=== PATIENT | female | born 1945 | race Caucasian/White ===

== ENCOUNTER 2020-07-31 11:03 | Outpatient (CLI) | payer MEDICARE, SELFPAY ==
[2020-07-31 17:32] LABS: Alanine Aminotransferase 15 U/L (4-35); Alkaline Phosphatase 100 U/L (38-126); Anion Gap 5 mmol/L (8-16); Aspartate Amino Transferase 28 U/L (14-36); Bilirubin,Total 0.6 mg/dL (0.2-1.3); Blood Urea Nitrogen 10 mg/dL (7-17); Calcium 9.5 mg/dL (8.4-10.2); Carbon Dioxide 33 mmol/L (22-30); Chloride 102 mmol/L (98-107); Cholesterol 222 mg/dL (0-200); Estimated Glomerular Filt Rate > 60; Glucose 111 mg/dL (65-105); HDL Direct 70 mg/dL; Potassium 3.4 mmol/L (3.4-5.0); Sodium 140 mmol/L (137-145); Triglycerides 217 mg/dL (<150)
[2020-07-31 17:43] LABS: LDL Cholesterol Direct 141 mg/dL
[2020-07-31 17:48] LABS: Free T4 Free Thyroxine 1.22 ng/mL (0.78-2.19)
[2020-07-31 18:03] LABS: Thyroid Stimulating Hormone 0.225 uIU/mL (0.465-4.680)
[2020-07-31 18:40] LABS: Folic Acid > 20.0 ng/mL (2.76->20)
[2020-08-05 14:13] LABS: Triiodothyronine T3 Free 2.8 pg/mL (2.3-4.2)
== END 2020-07-31 11:04 | disposition home or self-care (01) ==
PROVIDERS: PCP Family Medicine; Visit Provider Physician Assistant
DX: E03.9 Hypothyroidism, unspecified (principal); E78.5 Hyperlipidemia, unspecified; G25.81 Restless legs syndrome
CPT/HCPCS: 36415; 80053; 80061; 82607; 82746; 84439; 84443; 84481

== ENCOUNTER 2021-01-27 14:49 | Outpatient (CLI) | payer MEDICARE, SELFPAY ==
--- NOTE | ~2021-01-27 | CT_ITS ---
EXAMINATION: CT soft tissue neck chest w DATE: 01/27/2021 15:42 INDICATION: Paralysis of vocal cords and larynx, unilateral. TECHNIQUE: Computed tomography (CT) of the neck and chest was performed with 75 mL Omnipaque-350 intr avenous contrast. Automated exposure control and iterative reconstruction technique were employed. Th e dose-length product was 858.25 mGy-cm. COMPARISON: PET/CT 08/30/18, CHEST CT 08/10/18 FINDINGS: CT NECK: There is anteroposterior elongation of the ocular globes. There are likely changes of ocular lens replacement surgeries. There are no pathologically enlarged lymph nodes. There is asymmetric po sitioning of the vocal cords. There is plaque in proximal right internal carotid artery with 0% steno sis relative to normal distal artery lumen diameter. There is moderate cervical spondylosis. CT CHEST: The lung volumes are small. There is widespread peripheral septal thickening in the lungs c onsistent with mild groundglass opacities. There is a staple line in left lower lobe. A calcified rig ht lung nodule and calcified right hilar and mediastinal lymph nodes are consistent with old granulom atous disease. No pleural effusion. Cardiomegaly is noted. There is a large sliding hiatal hernia. A left hilar node measures 13 x 14 mm. There are changes of left mastectomy. Calcifications in the sple en are consistent with old granulomatous disease. There is mild thoracic spondylosis. There is a rosi ngioma in T4 vertebral body. IMPRESSION: 1. Diffuse lung disease, worsened from 08/10/2018, consistent with chronic interstitial lung disease in a pattern of usual interstitial pneumonia (UIP) versus nonspecific interstitial pneumonia (NSIP). 2. Mildly enlarged left hilar lymph node, stable from 08/10/2018, likely benign. 3. 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 No etiology identified. 4. Large sliding hiatal hernia. Reviewed, dictated and finalized at location A. IMPRESSION: 1. Diffuse lung disease, worsened from 08/10/2018, consistent with chronic inte rstitial lung disease in a pattern of usual interstitial pneumonia (UIP) versus nonspecific interstitial pneumonia (NSIP). 2. Mildly enlarged left hilar lymph node, stable from 08/10/2018, likely benign . 3. Asymmetric positioning of the vocal cords correlating with the clinical hist ory of vocal cord paralysis. No etiology identified. 4. Large sliding hiatal hernia.
[2021-01-27 15:22] LABS: Estimated Glomerular Filt Rate > 60
== END 2021-01-27 14:50 | disposition home or self-care (01) ==
PROVIDERS: PCP Physician Assistant; Visit Provider Otolaryngology
DX: Z85.9 Personal history of malignant neoplasm, unspecified (principal); R91.8 Other nonspecific abnormal finding of lung field; K44.9 Diaphragmatic hernia without obstruction or gangrene
CPT/HCPCS: 70491; 71260; Q9967

== ENCOUNTER → 2021-07-07 12:16 | Outpatient (CLI) | payer MEDICARE, SELFPAY ==
--- NOTE | ~2021-07-07 | XR_ITS ---
EXAMINATION: XR wrist RT min 3V EXAM DATE: 07/07/2021 12:52 INDICATION: M25.539 - Pain in unspecified wrist. TECHNIQUE: Right wrist frontal, frontal with ulnar deviation, oblique and lateral projections obtain ed and reviewed. There is no prior study for comparison. FINDINGS: There is ulnar minus variance. Old ulnar styloid avulsion fracture or fractures with nonuni on. 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 Chondrocalcinosis can be an age rela geraldine finding, but with other possible etiologies including CPPD, parathyroid disorders, hemochromatosi s, gout. 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 Mildly widened scapholunate timmy int space, could indicate partial dissociation. IMPRESSION: Chronic right wrist findings as above. Reviewed, dictated and finalized at location A. TRICAL LINEMAN
--- NOTE | ~2021-07-07 | DEXA_ITS ---
Bone Density Report Name: Hanh Baires Age: 76 Sex: Female Ethnicity: White Date of : 1945 Indication: postmenopausal; screening for osteoporosis; height loss; prior fracture; cancer; Referring Provider: JESUS HARRY Study: Bone densitometry was performed. Exam Date: July 07, 2021 Accession number: [id number] Bone Density: Region BMD T-score Z-score Classification AP Spine (L1-L4) 1.201 1.4 3.9 Normal Femoral Neck (Left) 0.668 -1.6 0.6 Osteopenia Total Hip (Left) 0.947 0.0 2.0 Normal Femoral Neck (Right) 0.675 -1.6 0.6 Osteopenia Total Hip (Right) 0.877 -0.5 1.4 Normal Total Hip Mean 0.912 -0.3 1.7 Normal World Health Organization criteria for BMD impression classify patients as: Normal (T-score at or above -1.0), Osteopenia (T-score between -1.0 and -2.5), or Osteoporosis (T-score at or below -2.5). 10-year Fracture Risk(1): Major Osteoporotic Fracture 17% Hip Fracture 3.5% Reported Risk Factors: [place] (), Neck BMD=0.668, BMI=37.6, previous fracture (1) FRAX(R) Version 3.08. Fracture probability calculated for an untreated patient. Fracture probability may be lower if the patient has received treatment. Clinical Information Provided by Patient: Has had a low trauma fracture Has used the following medications: Calcium Has the following medical conditions: Cancer Patient maximum height was 64 Menopause Age: 47 No regular weight bearing exercise Does not regularly consume dairy products Drinks caffeinated beverages Onset of menses at age 11 Number of children 3 Impression: The patient has low bone mass, based on the Left Femoral Neck T-score. The patient has an estimated ten-year risk of hip fracture of 3.5% and an estimated ten-year risk of major fracture of 17%, based on the WHO FRAX algorithm. The patient has risk factors, including: previous fracture. Discussion: BONE DENSITY IS LOW AT ONE OR MORE SKELETAL SITES. THE PATIENT'S BMD AND CLINICAL RISK FACTORS CONTRIBUTE TO THIS PATIENT'S INCREASED RISK OF FRACTURE. This patient's lowest T-score is low at one or more skeletal sites. It meets the World Health Organization's (WHO) criteria for ?low bone mass? (T-score between -1.0 and -2.5). The patient's 10-year risk of hip fracture as calculated by FRAX exceeds the threshold where pharmacological therapy is recommended by the National Osteoporosis Foundation (NOF). However, all treatment decisions require clinical judgment and consideration of individual patient factors, including patient preferences, comorbidities, previous drug use, risk factors not captured in the FRAX model (e.g., frailty, falls, vitamin D deficiency, increased bone turnover, interval significant decline in bone density) and possible under or overestimation of fracture risk by FRAX. The patient s
== END ==
PROVIDERS: PCP Family Medicine; Visit Provider Family Medicine
DX: Z78.0 Asymptomatic menopausal state (principal); M25.539 Pain in unspecified wrist; M85.852 Other specified disorders of bone density and structure, left thigh; M85.851 Other specified disorders of bone density and structure, right thigh
CPT/HCPCS: 73110; 77080

== ENCOUNTER 2021-11-10 10:21 | Outpatient (CLI) | payer MEDICARE, SELFPAY ==
--- NOTE | ~2021-11-10 | XR_ITS ---
EXAMINATION: XR chest 2V DATE: 11/10/2021 10:47 INDICATION: Dyspnea, unspecified. TECHNIQUE: Frontal and lateral views of the chest were obtained. COMPARISON: Chest CT 01/27/2021, chest 2 views 11/17/2017 FINDINGS: There is chronic widespread septal thickening in the lungs. No pleural effusion or pneumoth orax. The heart size is normal. There is a large hiatal hernia. Calcified right hilar lymph nodes are consistent with old granulomatous disease. IMPRESSION: 1. Chronic interstitial lung disease. 2. Large hiatal hernia. Reviewed, dictated and finalized at location A.
[2021-11-10 18:54] LABS: Hemoglobin 14.5 g/dL (12.0-15.0); Mean Corpuscular HGB Conc 32.2 g/dl (32-36); Mean Corpuscular Hemoglobin 31.9 pg (26-34); Mean Corpuscular Volume 99.1 fl (80-100); Mean Platelet Volume 10.5 fl (7.4-10.4); Platelet Count Result 482 k/mm3 (150-375); Red Blood Count 4.54 M/mm3 (4.2-5.4); Red Cell Distribution Width 12.9 % (11.5-14.5); White Blood Count 17.2 K/mm3 (4.5-10.0)
[2021-11-10 19:57] LABS: Hemoglobin A1C 5.6 % (<5.7)
[2021-11-10 20:00] LABS: Creatinine Urine 161.8 mg/dL
[2021-11-10 20:05] LABS: MALB Creatinine Ratio 22.6 mg/g (0-30); Microalbumin Urine Random 36.5 mg/L (0-16.7)
[2021-11-10 20:09] LABS: Vitamin D 25 Hydroxy 41.1 ng/mL
[2021-11-10 20:15] LABS: Alanine Aminotransferase 23 U/L (4-35); Albumin Level 4.3 g/dL (3.5-5.1); Alkaline Phosphatase 105 U/L (38-126); Anion Gap 12 mmol/L (8-16); Aspartate Amino Transferase 23 U/L (14-36); Bilirubin,Total 0.8 mg/dL (0.2-1.3); Blood Urea Nitrogen 19 mg/dL (7-17); Calcium 9.3 mg/dL (8.4-10.2); Carbon Dioxide 28 mmol/L (22-30); Chloride 96 mmol/L (98-107); Cholesterol 158 mg/dL (0-200); Estimated Glomerular Filt Rate > 60; Glucose 109 mg/dL (65-110); HDL Direct 64 mg/dL; Potassium 3.4 mmol/L (3.4-5.0); Sodium 136 mmol/L (137-145); Triglycerides 203 mg/dL (<150)
[2021-11-10 20:22] LABS: Thyroid Stimulating Hormone Reflex 0.055 uIU/mL (0.465-4.68)
[2021-11-10 20:26] LABS: LDL Cholesterol Direct 65 mg/dL
[2021-11-10 20:49] LABS: Free T4 Free Thyroxine Reflex 1.44 ng/dL (0.78-2.19)
[2021-11-10 21:36] LABS: Total Triiodothyronine (T3) 0.97 NG/ML (0.97-1.69)
== END 2021-11-10 10:22 | disposition home or self-care (01) ==
PROVIDERS: PCP Family Medicine; Visit Provider Family Medicine
DX: E11.9 Type 2 diabetes mellitus without complications (principal); R53.83 Other fatigue; E78.2 Mixed hyperlipidemia; E55.9 Vitamin D deficiency, unspecified; E03.9 Hypothyroidism, unspecified; R06.00 Dyspnea, unspecified; K44.9 Diaphragmatic hernia without obstruction or gangrene; J84.9 Interstitial pulmonary disease, unspecified
CPT/HCPCS: 36415; 71046; 80053; 80061; 82043; 82306; 83036; 84439; 84443; 84480; 85027

== ENCOUNTER 2021-11-12 13:38 | Outpatient (CLI) | payer MEDICARE, SELFPAY ==
--- NOTE | ~2021-11-12 | CT_ITS ---
EXAMINATION: CT chest high resolution wo co DATE: 11/12/2021 14:31 INDICATION: Shortness of breath. Abnormal finding of lung field. History of breast cancer. TECHNIQUE: Computed tomography (CT) of the abdomen was performed without intravenous contrast. Automa geraldine exposure control and iterative reconstruction technique were employed. Exam dose: 217.80 mGy-cm total exam DLP. Each high-resolution chest COMPARISON: 11/10/2021 2 view chest 08/10/2018 CT chest abdomen FINDINGS: Borderline heart size. Coronary artery calcifications. There is aortic and great vessel calcification. No hilar or mediastinal or axillary mass lesion or ly mphadenopathy is noted.. Status post left mastectomy. Azygos lobe, normal variant. There are peripheral reticular opacities involving particularly the anterior lung mcwilliams, possibly po stradiation sequela versus chronic interstitial fibrosis, possibly usual interstitial pneumonia type. Status post partial left pneumonectomy. There is mild bilateral apical scarring. Calcified right upper lobe pulmonary granuloma and calcified right hilar and mediastinal nodes, consi stent with old granulomatous disease. No pulmonary consolidation or suspicious pulmonary mass lesion is identified. Very large hiatal hernia containing most of the stomach with small fluid levels. Occasional calcified hepatic and splenic granulomas consistent with old granulomatous disease. Normal morphology of the adrenal glands. Hemangioma of T4 vertebral body. There is degenerative change of the cervical, thoracic and lumbar sp ine. No suspicious osteolytic or osteoblastic lesions are noted. IMPRESSION: Status post left mastectomy Status post partial left pneumonectomy Increased reticular interstitial markings of the peripheral lung mcwilliams especially in the anterior solange ngs, possibly sequela of radiation and/or usual interstitial pneumonia chronic interstitial fibrosis Large hiatal hernia containing most of the stomach with small fluid levels Reviewed, dictated and finalized at Location A. Reviewed, dictated and finalized at location A. IMPRESSION: Status post left mastectomy Status post partial left pneumonectomy Increased reticular interstitial markings of the peripheral lung mcwilliams especia lly in the anterior lungs, possibly sequela of radiation and/or usual interstit ial pneumonia chronic interstitial fibrosis Large hiatal hernia containing most of the stomach with small fluid levels
== END 2021-11-12 13:39 | disposition home or self-care (01) ==
LOC: ANHIMG 13:38
PROVIDERS: PCP Family Medicine; Visit Provider Family Medicine
DX: R91.8 Other nonspecific abnormal finding of lung field (principal); K44.9 Diaphragmatic hernia without obstruction or gangrene
CPT/HCPCS: 71250

== ENCOUNTER 2022-03-23 13:30 | Outpatient (CLI) | payer MEDICARE, SELFPAY ==
--- NOTE | 2022-03-23 14:17 | PCRCNOTE ---
PT CAME IN FOR 6 MINUTE WALK AND PFT TESTING, PT'S BLOOD PRESSURE WAS 179/105. RECHECKED BLOOD PRESSURE SEVERAL MORE TIMES AND IT WAS STILL ELEVATED. SPOKE WITH ORDERING PHYSICIAN'S OFFICE, DR SHELTON AND THEY ADVISED PT TO CALL PT'S PRIMARY PHYSICIAN AND CANCELLED PT'S TESTING FOR TODAY. SHE WILL RESCHEDULE WHEN BLOOD PRESSURE ISSUES ARE RESOLVED.
== END 2022-03-23 13:31 | disposition home or self-care (01) ==
PROVIDERS: PCP Family Medicine; Visit Provider Internal Medicine Pulmonary Disease
DX: R06.00 Dyspnea, unspecified (principal)
CPT/HCPCS: 99199

== ENCOUNTER 2022-03-28 14:13 | Outpatient (CLI) | payer MEDICARE, SELFPAY ==
[2022-03-28 20:46] LABS: Creatine Kinase 43 U/L (30-135)
[2022-03-28 20:49] LABS: Rheumatoid Factor < 8.6 IU/ML (<12)
[2022-03-30 21:12] LABS: Anti Cyclic Citrullinated Pept <16 Units (<20)
[2022-03-31 21:09] LABS: ANA Cascade Screen Negative (Negative)
[2022-04-02 11:24] LABS: Aldolase 3.7 U/L (<=8.1)
[2022-04-06 22:21] LABS: ANCA Screen Negative (Negative)
== END 2022-03-28 14:14 | disposition home or self-care (01) ==
PROVIDERS: PCP Family Medicine; Visit Provider Internal Medicine Pulmonary Disease
DX: J84.9 Interstitial pulmonary disease, unspecified (principal); J98.4 Other disorders of lung
CPT/HCPCS: 36415; 82085; 82550; 86036; 86038; 86200; 86331; 86430; 86606; 86609

== ENCOUNTER 2022-07-13 14:17 | Outpatient (CLI) | payer MEDICARE, SELFPAY ==
[2022-07-13 19:47] LABS: Hemoglobin A1C 5.8 % (<5.7)
[2022-07-13 19:54] LABS: Hematocrit 44.9 % (37.0-47.0); Hemoglobin 14.7 g/dL (12.0-15.0); Mean Corpuscular HGB Conc 32.7 g/dl (32-36); Mean Corpuscular Hemoglobin 31.8 pg (26-34); Mean Corpuscular Volume 97.2 fl (80-100); Mean Platelet Volume 11.3 fl (7.4-10.4); Platelet Count Result 352 k/mm3 (150-375); Red Blood Count 4.62 M/mm3 (4.2-5.4); White Blood Count 11.5 K/mm3 (4.5-10.0)
[2022-07-13 20:00] LABS: Alanine Aminotransferase 21 U/L (6-35); Albumin Level 4.5 g/dL (3.5-5.1); Alkaline Phosphatase 136 U/L (38-126); Anion Gap 12 mmol/L (8-16); Aspartate Amino Transferase 51 U/L (14-36); Bilirubin,Total 0.5 mg/dL (0.2-1.3); Blood Urea Nitrogen 10 mg/dL (7-17); Calcium 9.4 mg/dL (8.4-10.2); Carbon Dioxide 28 mmol/L (22-30); Chloride 98 mmol/L (98-107); Cholesterol 184 mg/dL (0-200); Estimated Glomerular Filt Rate > 60; Glucose 101 mg/dL (65-110); HDL Direct 67 mg/dL; Potassium 3.7 mmol/L (3.4-5.0); Sodium 138 mmol/L (137-145); Triglycerides 168 mg/dL (<150)
[2022-07-13 20:11] LABS: LDL Cholesterol Direct 78 mg/dL
[2022-07-13 20:15] LABS: Vitamin D 25 Hydroxy 44.6 ng/mL
[2022-07-13 20:28] LABS: Thyroid Stimulating Hormone Reflex 0.023 uIU/mL (0.465-4.68)
[2022-07-13 20:51] LABS: Vitamin B12 > 1000.0 pg/mL (239-931)
[2022-07-13 21:28] LABS: Free T4 Free Thyroxine Reflex 1.28 ng/dL (0.78-2.19)
[2022-07-13 22:43] LABS: Total Triiodothyronine (T3) 1.46 NG/ML (0.97-1.69)
== END 2022-07-13 14:18 | disposition home or self-care (01) ==
PROVIDERS: PCP Family Medicine; Visit Provider Family Medicine
DX: E78.2 Mixed hyperlipidemia (principal); R73.03 Prediabetes; E03.9 Hypothyroidism, unspecified; E55.9 Vitamin D deficiency, unspecified; I10 Essential (primary) hypertension; R53.83 Other fatigue; E53.8 Deficiency of other specified B group vitamins
CPT/HCPCS: 36415; 80053; 80061; 82306; 82607; 83036; 84439; 84443; 84480; 85027

== ENCOUNTER 2022-12-28 13:57 | Outpatient (CLI) | payer MEDICARE, SELFPAY ==
[2022-12-28 20:10] LABS: Alanine Aminotransferase 19 U/L (6-35); Albumin Level 4.3 g/dL (3.5-5.1); Alkaline Phosphatase 99 U/L (38-126); Anion Gap 5 mmol/L (8-16); Aspartate Amino Transferase 62 U/L (14-36); Bilirubin,Total 0.6 mg/dL (0.2-1.3); Blood Urea Nitrogen 10 mg/dL (7-17); Calcium 9.4 mg/dL (8.4-10.2); Carbon Dioxide 35 mmol/L (22-30); Chloride 100 mmol/L (98-107); Estimated Glomerular Filt Rate > 60; Glucose 127 mg/dL (65-110); Potassium 3.5 mmol/L (3.4-5.0); Sodium 140 mmol/L (137-145)
[2022-12-28 20:26] LABS: Thyroid Stimulating Hormone Reflex < 0.015 uIU/mL (0.465-4.68)
== END 2022-12-28 13:58 | disposition home or self-care (01) ==
PROVIDERS: PCP Family Medicine; Visit Provider Family Medicine
DX: E03.9 Hypothyroidism, unspecified (principal); I10 Essential (primary) hypertension
CPT/HCPCS: 36415; 80053; 84439; 84443; 84480

== ENCOUNTER 2023-07-24 14:01 | Outpatient (CLI) | payer MEDICARE, SELFPAY ==
--- NOTE | ~2023-07-24 | XR_ITS ---
EXAMINATION: XR lumbar spine min 4V DATE: 07/24/2023 14:43 INDICATION: Right-sided low back pain TECHNIQUE: Anteroposterior, lateral, and bilateral oblique views of the lumbar spine, and cone-down l ateral view of the lumbosacral junction were obtained. COMPARISON: CT chest dated 08/10/2018 FINDINGS: Increase in now 20 degrees upper lumbar levoscoliosis. Chronic L4 burst fracture with 40% anterior to central vertebral body height loss and 5 mm retropulsion of the superior aspect of the posterior wal l. Remaining vertebral body heights are normal. Moderate disc height loss at L4-L5 and L5-S1, mild to moderate disc height loss at L1-L2 and L2-L3 and mild disc height loss at T12-L1. There is balloonin g of the L3-L4 disc space resulting from the L4 first fracture. There is bilateral severe facet osteo arthritis in the mid to lower lumbar spine. No pars interarticularis defects. IMPRESSION: 1. 20 degree upper lumbar levoscoliosis with moderate spondylosis and severe mid to lower lumbar face t osteoarthritis. 2. Chronic L4 burst fracture with 40% vertebral body height loss and 5 mm retropulsion. Reviewed, dictated and finalized at location A. RER OPERATOR IMPRESSION: 1. 20 degree upper lumbar levoscoliosis with moderate spondylosis and severe mi d to lower lumbar facet osteoarthritis. 2. Chronic L4 burst fracture with 40% vertebral body height loss and 5 mm retro pulsion.
[2023-07-24 19:26] LABS: Alanine Aminotransferase 17 U/L (6-35); Albumin Level 4.3 g/dL (3.5-5.1); Alkaline Phosphatase 105 U/L (38-126); Anion Gap 10 mmol/L (8-16); Aspartate Amino Transferase 62 U/L (14-36); Bilirubin,Total 0.8 mg/dL (0.2-1.3); Blood Urea Nitrogen 9 mg/dL (7-17); Calcium 9.2 mg/dL (8.4-10.2); Carbon Dioxide 31 mmol/L (22-30); Chloride 97 mmol/L (98-107); Estimated Glomerular Filt Rate > 60; Glucose 97 mg/dL (65-110); Potassium 2.9 mmol/L (3.4-5.0); Sodium 138 mmol/L (137-145)
[2023-07-24 21:03] LABS: Hemoglobin A1C 5.7 % (<5.7)
== END 2023-07-24 14:02 | disposition home or self-care (01) ==
PROVIDERS: PCP Family Medicine; Visit Provider Physician Assistant Medical
DX: E03.9 Hypothyroidism, unspecified (principal); R73.03 Prediabetes; I10 Essential (primary) hypertension
CPT/HCPCS: 36415; 72110; 80053; 83036; 84443

== ENCOUNTER 2023-07-28 15:09 | Outpatient (CLI) | payer MEDICARE, SELFPAY ==
--- NOTE | ~2023-07-28 | CT_ITS ---
EXAMINATION: CT lumbar spine wo con DATE: 07/28/2023 15:36 INDICATION: Lumbar burst fracture TECHNIQUE: Computed tomography (CT) of the lumbar spine was performed without intravenous contrast. A utomated exposure control and iterative reconstruction technique were employed. The dose-length produ ct was 1336.97 mGy-cm. COMPARISON: 08/10/2018 FINDINGS: 13 degree lumbar levoscoliosis. 2 mm anterolisthesis L4 on L5. 5 mm right lateral listhesis L4 on L5 and 5 mm left lateral listhesis of L2 on L3. No interval change in a chronic L4 burst fracture with 4 0% anterior to central vertebral body height loss and with 5 mm retropulsion along the posterior aspe ct of the superior endplate. Remaining lumbar vertebral body heights are normal. Moderate disc height loss at L5-S1 and moderate left-sided disc height loss at L4-L5. Mild disc height loss at L2-L3. Ath erosclerotic calcific a cyst along the visualized abdominal aorta. 10 mm macroscopic fat attenuation angiomyolipomas at the upper pole the right kidney. Paravertebral soft tissues are otherwise unremark able. Mild bilateral sacroiliac osteoarthritis. The following disc levels are specifically discussed: T10-T11: The disc does not extend beyond the endplate margin. There is mild right and moderate left f acet osteoarthritis. No central canal or neural foraminal stenosis. T11-T12: The disc does not extend beyond the endplate margin. There is mild right and moderate left f acet joint osteoarthritis. There is no neural foraminal stenosis. There is no central canal stenosis. T12-L1: Disc is bulging, eccentric to the left. There is mild right and moderate left facet joint ost eoarthritis. There is minimal left neural foraminal stenosis. There is mild central canal stenosis wi th mild narrowing of the left lateral recess. L1-L2: There is some calcification at the periphery of the bulging disc. There appears be a superimpo sed right foraminal zone disc extrusion. There is mild right and moderate left facet joint osteoarthr itis. There is mild left and moderate right neural foraminal stenosis. There is mild central canal st enosis. L2-L3: Disc is bulging also with some peripheral disc calcification and small right foraminal zone di sc extrusion. There is mild right and moderate to severe left facet joint osteoarthritis. There is mi ld to moderate left and moderate right neural foraminal stenosis. There is mild central canal stenosi s. L3-L4: Disc is bulging. But does not appear to extend beyond the retropulsed L4 superior endplate mar gin. There is severe bilateral facet joint osteoarthritis. There is moderate bilateral neural foramin al stenosis. There is mild to moderate central canal stenosis. L4-L5: Disc is bulging. There is severe bilateral facet joint osteoarthritis. There is mild to modera te right and moderate to severe left neural foraminal stenosis. There is mild central canal stenosis. L5-S1: Disc is bulging with small endplate osteophytes at the bilateral foraminal zones. There is sev ere left and moderate to severe right facet joint osteoarthritis. There is moderate bilateral neural foraminal stenosis. There is minimal central canal stenosis. IMPRESSION: 1. No interval change in a chronic L4 burst fracture with 40% vertebral body height loss and 5 mm ret ropulsion. 2. 13 degrees lumbar levoscoliosis with moderate spondylosis. Reviewed, dictated and finalized at location A. UNITY ENGAGEMENT COORDINATOR IMPRESSION: 1. No interval change in a chronic L4 burst fracture with 40% vertebral body he ight loss and 5 mm retropulsion. 2. 13 degrees lumbar levoscoliosis with moderate spondylosis.
== END 2023-07-28 15:10 | disposition home or self-care (01) ==
PROVIDERS: PCP Family Medicine; Visit Provider Physician Assistant Medical
DX: S32.001A Stable burst fracture of unspecified lumbar vertebra, initial encounter for closed fracture (principal); X58.XXXA Exposure to other specified factors, initial encounter; M47.896 Other spondylosis, lumbar region
CPT/HCPCS: 72131

== ENCOUNTER 2024-04-10 13:41 | Outpatient (CLI) | payer MEDICARE, SELFPAY ==
--- NOTE | ~2024-04-10 | CT_ITS ---
EXAMINATION: CT soft tissue neck chest w DATE: 04/10/2024 14:51 INDICATION: Paralysis of vocal cords and larynx, unspecified. TECHNIQUE: Computed tomography (CT) of the neck and chest was performed with 75 mL Omnipaque-350 intr avenous contrast. Automated exposure control and iterative reconstruction technique were employed. Th e dose-length product was 890.75 mGy-cm. COMPARISON: Chest CT 11/12/2021, 08/10/2018 FINDINGS: CT NECK: There are likely changes of ocular lens replacement surgeries. There is an anteroposterior e longation of the ocular globes. There are no pathologically enlarged lymph nodes. There is a 16 mm no dule in left thyroid lobe. There is paralysis of left vocal cord. The paranasal sinuses are clear. Th e mastoid air cells are normal. There is moderate cervical spondylosis. CT CHEST: There is widespread septal thickening in the lungs with a peripheral predominance. There is air trapping in the lower lobes. There are changes of wedge resection in left lower lobe. No pleural effusion. Cardiomegaly is noted. There are coronary artery calcifications. No pericardial effusion. There is a large sliding hiatal hernia. Calcifications in the spleen are consistent with old granulom atous disease. There is mild lymphadenopathy at the left hilum and aorticopulmonary window. For examp le, an aorticopulmonary node measures 15 x 10 mm. There are changes of left mastectomy. There is mode rate thoracic spondylosis. There is a hemangioma in T4 vertebral body. IMPRESSION: 1. Paralysis of left vocal cord. 2. Mild left hilar and mediastinal lymphadenopathy, which may be reactive or metastatic disease. 3. Large sliding hiatal hernia. 4. Chronic interstitial lung disease in a pattern of usual interstitial pneumonia (UIP). 5. Left thyroid nodule. Consider thyroid ultrasound for risk stratification. Reviewed, dictated and finalized at location A. IMPRESSION: 1. Paralysis of left vocal cord. 2. Mild left hilar and mediastinal lymphadenopathy, which may be reactive or me tastatic disease. 3. Large sliding hiatal hernia. 4. Chronic interstitial lung disease in a pattern of usual interstitial pneumon ia (UIP). 5. Left thyroid nodule. Consider thyroid ultrasound for risk stratification.
[2024-04-10 14:40] LABS: Estimated Glomerular Filt Rate > 60
== END 2024-04-10 13:42 | disposition home or self-care (01) ==
PROVIDERS: PCP Family Medicine; Visit Provider Otolaryngology
DX: J38.00 Paralysis of vocal cords and larynx, unspecified (principal); K44.9 Diaphragmatic hernia without obstruction or gangrene; J84.9 Interstitial pulmonary disease, unspecified
CPT/HCPCS: 70491; 71260; Q9967